=== PATIENT | male | born 1990 | race Caucasian/White ===

== ENCOUNTER → 2018-07-19 | Outpatient (CLI) | payer BC ==
[2018-07-19 15:00] LABS: BASO # 0.1 (0.02-0.10); EOS # 0.2 (0.04-0.40); EOS % 2.3 % (0.0-4.0); HEMATOCRIT 43.8 % (42.0-52.0); HEMOGLOBIN 14.6 g/dL (13.5-18.0); LYMPH# 1.7 (1.50-4.00); MEAN CELL VOLUME 83 fl (78-100); MEAN CORPUSCULAR HEMOGLOBIN 28 pg (27-31); MEAN CORPUSCULAR HGB CONC 33 g/dL (33-37); MEAN PLATELET VOLUME 11.1 fl (7.4-10.4); MONO # 0.6 (0.20-0.80); NEU # 3.9 (1.40-6.50); PLATELET COUNT 234 K/mm3 (130-400); RED BLOOD COUNT 5.26 M/mm3 (4.20-5.60); RED CELL DISTRIBUTION WIDTH 12.7 % (11.5-14.5); WHITE BLOOD COUNT 6.4 K/mm3 (4.8-10.8)
[2018-07-19 20:30] LABS: ALBUMIN 4.5 g/dL (3.5-5.0); CALCIUM 9.6 mg/dL (8.4-10.2); TOTAL BILIRUBIN 0.3 mg/dL (0.2-1.3); TOTAL PROTEIN 7.3 g/dL (6.3-8.2)
== END ==
LOC: RAD 14:22
PROVIDERS: Family Medicine
DX: Z00.00 Encounter for general adult medical examination without abnormal findings (principal); G43.909 Migraine, unspecified, not intractable, without status migrainosus; E66.3 Overweight; R53.83 Other fatigue

== ENCOUNTER → 2019-06-11 | Outpatient (CLI) | payer BC | LOC: RAD 14:00 | DX: N50.812 Left testicular pain (principal) ==

== ENCOUNTER → 2020-12-22 | Outpatient (CLI) | payer BC ==
[2020-12-23 04:43] LABS: HEPATITIS C ANTIBODY Negative (Negative)
[2020-12-23 17:36] LABS: SYPHILIS AB SCREEN w REFLEX Negative (Negative)
== END ==
LOC: LAB 15:24
PROVIDERS: Family Medicine
DX: Z72.51 High risk heterosexual behavior (principal)

== ENCOUNTER → 2021-07-08 | Outpatient (CLI) | payer BC | LOC: LAB 09:35 | DX: Z30.2 Encounter for sterilization (principal) ==